=== PATIENT | male | born 1940 | race Caucasian/White ===

== ENCOUNTER 2016-12-16 08:59 | Emergency (ER) | payer MEDICARE, OTHER ==
[2016-12-16] MEDS ORDERED: Sodium Chloride 0.9% 10 ML Syringe FLUSH PRN (09:21)
--- NOTE | 2016-12-16 09:26 | EDM.PDOC ---
ED HPI GENERAL MEDICAL PROBLEM - General Chief Complaint: Neuro Symptoms/Deficits Stated Complaint: [facility] Time Seen by Provider: 12/16/16 09:02 Source of Information: Reports: Patient, Family History Limitations: Reports: No Limitations - History of Present Illness INITIAL COMMENTS - FREE TEXT/NARRATIVE: The patient is a 76-year-old male with a history of diabetes on glyburide only, no insulin, who presents with an episode of unresponsiveness and hypoglycemia. He states that he's had a lot of trouble with his blood sugars going low. He has not used insulin for weeks. No change in his oral antihyperglycemic dose. Normally takes in the morning and at night. States he did not take his evening dose yesterday. However this morning he was unresponsive so his daughter called EMS. His blood sugar was 40 prior to them arriving. They noted it to be 54 upon their arrival. They gave an amp of D50. The patient started to wake up during transport after receiving glucose. Patient states that he's had a cough for about a week. He's been on doxycycline for about 6 days for this. Continues to have a productive cough. Has had some subjective fever and chills but no documented fever. No chest pain or shortness of breath. No abdominal pain. He did have one episode of vomiting 2 days ago. States that he has been eating and drinking normally. No abdominal pain. No lower extremity pain or swelling. No additional complaint. Treatments SURGICAL SUPERVISOR: Reports: EKG, IV/IO, Other (see below) Other Treatments SURGICAL SUPERVISOR: Dextrose - Related Data Allergies Allergy/AdvReac Type Severity Reaction Status Date / Time Sulfa (Sulfonamide Allergy Facial Verified 12/16/16 09:08 Antibiotics) Swelling Home Meds: Home Meds Acetaminophen [Tylenol Extra Strength] 1,000 mg PO Q6H PRN 12/16/16 [History] Allopurinol [Zyloprim] 300 mg PO DAILY 12/16/16 [History] Aspirin 325 mg PO DAILY 12/16/16 [History] Clopidogrel [Plavix] 75 mg PO DAILY 12/16/16 [History] Enoxaparin [Lovenox] 40 mg SUBCUT DAILY 12/16/16 [History] Glimepiride [Amaryl] 4 mg PO BID 12/16/16 [History] Insulin Glarg,Human.Rec.Analog [LantUS Solostar] 0 units SUBCUT DAILY PRN [History] Lisinopril 40 mg PO DAILY 12/16/16 [History] Metoprolol Tartrate [Lopressor] 100 mg PO BID 12/16/16 [History] Multivitamin [Multivitamins] 1 each PO DAILY 12/16/16 [History] Simvastatin [Zocor] 80 mg PO BEDTIME 12/16/16 [History] levETIRAcetam [Keppra] 500 mg PO BID 12/16/16 [History] Past Medical History Cardiovascular History: Reports: High Cholesterol, Hypertension, AR Genitourinary History: Reports: Renal Calculus, Other (See Below) Other Genitourinary History: renal "Water" cystys Endocrine/Metabolic History: Reports: Diabetes, Type II - Past Surgical History Cardiovascular Surgical History: Reports: Coronary Artery Stent GI Surgical History: Reports: Cholecystectomy Social & Family History - Tobacco Use Smoking Status *Q: Never Smoker - Recreational Drug Use Recreational Drug Use: No ED ROS GENERAL - Review of Systems Review Of Systems: See Below Constitutional: Reports: Chills, Malaise, Weakness, Fatigue. Denies: Fever HEENT: Reports: Rhinitis Respiratory: Reports: Cough. Denies: Shortness of Breath Cardiovascular: Denies: Chest Pain Endocrine: Reports: Low Glucose GI/Abdominal: Reports: Nausea. Denies: Abdominal Pain : Reports: No Symptoms Musculoskeletal: Reports: No Symptoms Skin: Reports: No Symptoms Neurological: Reports: Dizziness Psychiatric: Reports: No Symptoms Hematologic/Lymphatic: Reports: No Symptoms Immunologic: Reports: No Symptoms ED EXAM, NEURO - Physical Exam Exam: See Below Exam Limited By: No Limitations General Appearance: Alert, WD/WN, No Apparent Distress Eye Exam: Bilateral Eye: EOMI, Normal Inspection, PERRL Ears: Normal External Exam Nose: Normal Inspection Throat/Mouth: Normal Inspection, Normal Voice, No Airway Compromise Head Exam: Atraumatic, Normocephalic Neck: Normal Inspection, Supple, Non-Tender, Full Range of Motion Respiratory/Chest: No Respiratory Distress, Lungs Clear, Normal Breath Sounds, No Accessory Muscle Use, Chest Non-Tender Cardiovascular: Normal Peripheral Pulses, Regular Rate, Rhythm, No Edema, No Murmur GI/Abdominal: Soft, Non-Tender, No Distention. No: Rebound Neurological: Alert, Normal Mood/Affect, Normal Dorsiflexion, CN II-XII Intact, Normal Plantar Flexion, No Motor/Sensory Deficits, Oriented x 3 Extremities: Normal Inspection Psychiatric: Normal Affect, Normal Mood Skin Exam: Warm, Dry, Intact, Normal Color, No Rash Course - Vital Signs Last Recorded V/S: Last Vital Signs Temp 37.1 C 12/16/16 09:04 Pulse 75 12/16/16 14:59 Resp 16 12/16/16 14:59 BP 136/77 12/16/16 14:59 Pulse Ox 94 L 12/16/16 14:59 - Orders/Labs/Meds Orders: Active Orders 24 hr Category Date Time Status Blood Glucose Check, Bedside [RC] ONETIME Care 12/16/16 09:14 Active EKG Documentation Completion [RC] STAT Care 12/16/16 09:14 Active Peripheral IV Care [RC] . DIRECTED Care 12/16/16 09:21 Active Chest 1V Frontal [CR] Stat Exams 12/16/16 09:21 Taken CULTURE BLOOD [BC] Stat Lab 12/16/16 09:38 Received CULTURE BLOOD [BC] Stat Lab 12/16/16 09:54 Received Blood Culture x2 Reflex Set [OM.PC] Stat Oth 12/16/16 09:21 Ordered Peripheral IV Insertion Adult [OM.PC] Routine Oth 12/16/16 09:21 Ordered Labs: Laboratory Tests 12/16/16 12/16/16 12/16/16 Range/Units 09:05 09:38 09:38 WBC 4.65 (4.23-9.07) K/mm3 RBC 4.67 (4.63-6.08) M/mm3 Hgb 14.5 (13.7-17.5) gm/L Hct 42.5 (40.1-51.0) % MCV 91.0 (79.0-92.2) fl MCH 31.0 (25.7-32.2) pg MCHC 34.1 (32.2-35.5) g/dl RDW Std Deviation 45.0 H (35.1-43.9) fL Plt Count 148 L (163-337) K/mm3 MPV 10.2 (9.4-12.3) fl Neut % (Auto) 78.3 H (34.0-67.9) % Lymph % (Auto) 15.1 L (21.8-53.1) % Saline % (Auto) 5.8 (5.3-12.2) % Eos % (Auto) 0.6 L (0.8-7.0) Baso % (Auto) 0.2 (0.1-1.2) % Neut # (Auto) 3.64 (1.78-5.38) K/mm3 Lymph # (Auto) 0.70 L (1.32-3.57) K/mm3 Saline # (Auto) 0.27 L (0.30-0.82) K/mm3 Eos # (Auto) 0.03 L (0.04-0.54) K/mm3 Baso # (Auto) 0.01 (0.01-0.08) K/mm3 Sodium 141 (136-145) mEq/L Potassium 3.5 (3.5-5.1) mEq/L Chloride 105 (98-107) mEq/L Carbon Dioxide 25 (21-32) mEq/L Anion Gap 14.5 (5-15) BUN 12 (7-18) mg/dL Creatinine 1.3 (0.7-1.3) mg/dL Est Cr Clr Drug Dosing 51.40 mL/min Estimated GFR (MDRD) 53 (>60) mL/min BUN/Creatinine Ratio 9.2 L (14-18) Glucose 129 H (83-115) mg/dL POC Glucose (83-110) mg/dL Lactic Acid (0.4-2.0) mmol/L Calcium 9.4 (8.5-10.1) mg/dL Total Bilirubin 0.4 (0.2-1.0) mg/dL AST 21 (15-37) U/L ALT 12 L (16-63) U/L Alkaline Phosphatase 69 (46-116) U/L Troponin I < 0.017 (0.00-0.056) ng/mL Total Protein 7.2 (6.4-8.2) g/dl Albumin 3.6 (3.4-5.0) g/dl Globulin 3.6 gm/dL Albumin/Globulin Ratio 1.0 (1-2) Urine Color Light yellow (Yellow) Urine Appearance Clear (Clear) Urine pH 6.0 (5.0-8.0) Ur Specific [place] 1.020 (1.005-1.030) Urine Protein 1+ H (Negative) Urine Glucose (UA) Trace H (Negative) Urine Ketones Negative (Negative) Urine Occult Blood Trace-intact H (Negative) Urine Nitrite Negative (Negative) Urine Bilirubin Negative (Negative) Urine Urobilinogen 0.2 (0.2-1.0) Ur Leukocyte Esterase Negative (Negative) Urine RBC 0-5 (0-5) /hpf Urine WBC 0-5 (0-5) /hpf Ur Epithelial Cells 0-5 (0-5) /hpf Urine Bacteria Not seen (FEW) /hpf Urine Mucus Not seen (FEW) /hpf 12/16/16 12/16/16 12/16/16 Range/Units 09:38 10:48 11:42 WBC (4.23-9.07) K/mm3 RBC (4.63-6.08) M/mm3 Hgb (13.7-17.5) gm/L Hct (40.1-51.0) % MCV (79.0-92.2) fl MCH (25.7-32.2) pg MCHC (32.2-35.5) g/dl RDW Std Deviation (35.1-43.9) fL Plt Count (163-337) K/mm3 MPV (9.4-12.3) fl Neut % (Auto) (34.0-67.9) % Lymph % (Auto) (21.8-53.1) % Saline % (Auto) (5.3-12.2) % Eos % (Auto) (0.8-7.0) Baso % (Auto) (0.1-1.2) % Neut # (Auto) (1.78-5.38) K/mm3 Lymph # (Auto) (1.32-3.57) K/mm3 Saline # (Auto) (0.30-0.82) K/mm3 Eos # (Auto) (0.04-0.54) K/mm3 Baso # (Auto) (0.01-0.08) K/mm3 Sodium (136-145) mEq/L Potassium (3.5-5.1) mEq/L Chloride (98-107) mEq/L Carbon Dioxide (21-32) mEq/L Anion Gap (5-15) BUN (7-18) mg/dL Creatinine (0.7-1.3) mg/dL Est Cr Clr Drug Dosing mL/min Estimated GFR (MDRD) (>60) mL/min BUN/Creatinine Ratio (14-18) Glucose (83-115) mg/dL POC Glucose 88 103 (83-110) mg/dL Lactic Acid 1.5 (0.4-2.0) mmol/L Calcium (8.5-10.1) mg/dL Total Bilirubin (0.2-1.0) mg/dL AST (15-37) U/L ALT (16-63) U/L Alkaline Phosphatase (46-116) U/L Troponin I (0.00-0.056) ng/mL Total Protein (6.4-8.2) g/dl Albumin (3.4-5.0) g/dl Globulin gm/dL Albumin/Globulin Ratio (1-2) Urine Color (Yellow) Urine Appearance (Clear) Urine pH (5.0-8.0) Ur Specific Monroe (1.005-1.030) Urine Protein (Negative) Urine Glucose (UA) (Negative) Urine Ketones (Negative) Urine Occult Blood (Negative) Urine Nitrite (Negative) Urine Bilirubin (Negative) Urine Urobilinogen (0.2-1.0) Ur Leukocyte Esterase (Negative) Urine RBC (0-5) /hpf Urine WBC (0-5) /hpf Ur Epithelial Cells (0-5) /hpf Urine Bacteria (FEW) /hpf Urine Mucus (FEW) /hpf 12/16/16 12/16/16 Range/Units 12:47 14:57 WBC (4.23-9.07) K/mm3 RBC (4.63-6.08) M/mm3 Hgb (13.7-17.5) gm/L Hct (40.1-51.0) % MCV (79.0-92.2) fl MCH (25.7-32.2) pg MCHC (32.2-35.5) g/dl RDW Std Deviation (35.1-43.9) fL Plt Count (163-337) K/mm3 MPV (9.4-12.3) fl Neut % (Auto) (34.0-67.9) % Lymph % (Auto) (21.8-53.1) % Saline % (Auto) (5.3-12.2) % Eos % (Auto) (0.8-7.0) Baso % (Auto) (0.1-1.2) % Neut # (Auto) (1.78-5.38) K/mm3 Lymph # (Auto) (1.32-3.57) K/mm3 Saline # (Auto) (0.30-0.82) K/mm3 Eos # (Auto) (0.04-0.54) K/mm3 Baso # (Auto) (0.01-0.08) K/mm3 Sodium (136-145) mEq/L Potassium (3.5-5.1) mEq/L Chloride (98-107) mEq/L Carbon Dioxide (21-32) mEq/L Anion Gap (5-15) BUN (7-18) mg/dL Creatinine (0.7-1.3) mg/dL Est Cr Clr Drug Dosing mL/min Estimated GFR (MDRD) (>60) mL/min BUN/Creatinine Ratio (14-18) Glucose (83-115) mg/dL POC Glucose 92 139 H (83-110) mg/dL Lactic Acid (0.4-2.0) mmol/L Calcium (8.5-10.1) mg/dL Total Bilirubin (0.2-1.0) mg/dL AST (15-37) U/L ALT (16-63) U/L Alkaline Phosphatase (46-116) U/L Troponin I (0.00-0.056) ng/mL Total Protein (6.4-8.2) g/dl Albumin (3.4-5.0) g/dl Globulin gm/dL Albumin/Globulin Ratio (1-2) Urine Color (Yellow) Urine Appearance (Clear) Urine pH (5.0-8.0) Ur Specific [place] (1.005-1.030) Urine Protein (Negative) Urine Glucose (UA) (Negative) Urine Ketones (Negative) Urine Occult Blood (Negative) Urine Nitrite (Negative) Urine Bilirubin (Negative) Urine Urobilinogen (0.2-1.0) Ur Leukocyte Esterase (Negative) Urine RBC (0-5) /hpf Urine WBC (0-5) /hpf Ur Epithelial Cells (0-5) /hpf Urine Bacteria (FEW) /hpf Urine Mucus (FEW) /hpf Meds: Medications Discontinued Medications Generic Name Dose Route Start Last Admin Trade Name Rodo PRN Reason Stop Dose Admin Sodium Chloride 10 ml 12/16/16 09:21 12/16/16 09:25 Saline Flush FLUSH 10 ml ASDIRECTED PRN Administration Keep Vein Open - Re-Assessments/Exams Free Text/Narrative Re-Assessment/Exam: 12/16/16 10:47 Chest x-ray shows no acute abnormality, pacemaker/defibrillator present in left upper chest. EKG shows atrial paced complexes, anterior septal Q waves, no significant ST abnormality, diffuse T-wave flattening, no prior available for comparison. Troponin negative. Labs unremarkable. Patient has been alert and has eaten breakfast. He is on a long acting antihyperglycemic with the half- life of 9 hours. His last dose was about 24 hours ago. I suggested he hold his medication today and not resume it until his blood sugars consistently around 200 or higher. At that time he may restart the medication at half the prior dose which would be 2 mg daily. He can follow-up with his primary doctor as soon as possible, ideally tomorrow or Saturday, for further care. To monitor him here for a few hours to be ensured of no recurrent hypoglycemia. 12/16/16 14:10 Labs unremarkable. Patient has eaten multiple meals here and has not had a recurrent episode of hypoglycemia. [place] of town and while he does have family to watch him today, we will continue to observe him in the emergency department for another hour to to be sure that his blood sugar doesn' t drop again. Departure - Departure Time of Disposition: 15:30 Disposition: Home, Self-Care 01 Clinical Impression: Hypoglycemia - Discharge Information Instructions: Hypoglycemia, [id number] Referrals: Rossy Jones MD [Primary Care Provider] - Forms: ED Department Discharge Additional Instructions: 1. Do not restart glimepuride until your blood sugar is consistently 200 or higher. Then you may restart this medication but only take 2 mg in the morning. Follow-up with your primary doctor is soon as possible for further advice. 2. Eat protein rich meals today. 3. Return to the emergency department if you continue to have low blood sugars , especially if they are consistently less than 70, or for any other concerning symptoms. - My Orders Last 24 Hours: My Active Orders 12/16/16 09:14 Blood Glucose Check, Bedside [RC] ONETIME EKG Documentation Completion [RC] STAT 12/16/16 09:21 Peripheral IV Care [RC] . DIRECTED Chest 1V Frontal [CR] Stat Blood Culture x2 Reflex Set [OM.PC] Stat Peripheral IV Insertion Adult [OM.PC] Routine 12/16/16 09:38 CULTURE BLOOD [BC] Stat 12/16/16 09:54 CULTURE BLOOD [BC] Stat - Assessment/Plan Last 24 Hours: My Active Orders 12/16/16 09:14 Blood Glucose Check, Bedside [RC] ONETIME EKG Documentation Completion [RC] STAT 12/16/16 09:21 Peripheral IV Care [RC] . DIRECTED Chest 1V Frontal [CR] Stat Blood Culture x2 Reflex Set [OM.PC] Stat Peripheral IV Insertion Adult [OM.PC] Routine 12/16/16 09:38 CULTURE BLOOD [BC] Stat 12/16/16 09:54 CULTURE BLOOD [BC] Stat
[2016-12-16 14:59] VITALS: BP 136/77
--- NOTE | 2016-12-16 19:58 | CR ---
Chest: Portable view of the chest was obtained. Comparison: No previous study. Heart size is normal. Mild tortuosity of the thoracic aorta is seen. AICD is noted. Lungs are clear. Bony structures are grossly intact. Impression: 1. Nothing acute is identified on portable chest x-ray. Diagnostic code #2
== END 2016-12-16 15:20 | disposition home or self-care (01) ==
LOC: JD.ED 08:59
DX: E11.649 Type 2 diabetes mellitus with hypoglycemia without coma (principal); E78.00 Pure hypercholesterolemia, unspecified; I10 Essential (primary) hypertension; I25.2 Old myocardial infarction; Z88.2 Allergy status to sulfonamides; Z79.82 Long term (current) use of aspirin; Z79.4 Long term (current) use of insulin; Z79.02 Long term (current) use of antithrombotics/antiplatelets; Z79.899 Other long term (current) drug therapy; Z87.442 Personal history of urinary calculi; Z79.84 Long term (current) use of oral hypoglycemic drugs
CPT/HCPCS: 36415; 71010; 80053; 81001; 82962; 83605; 84484; 85025; 87040; 93005; 99285; J7050